=== PATIENT | male | born 1985 | race African-American/Black ===

== ENCOUNTER 2018-11-24 09:58 | Emergency (ER) | payer OTHER ==
[~2018-11-24] VITALS: Ht 172.7 cm; Wt 102.5 kg
[2018-11-24 10:05] VITALS: BP 132/95
[2018-11-24] MEDS ORDERED: MELO7.5T29 PO (10:43)
[2018-11-24] MEDS ORDERED: SULF1TAB24 PO (10:43)
--- NOTE | 2018-11-24 10:43 | PHYS DOC ---
Past History Past Medical History: No Pertinent History Past Surgical History: No Surgical History Smoking: Cigarettes Alcohol Use: None Drug Use: None Adult General Chief Complaint Chief Complaint: ABSCESS HPI HPI Patient is a 33-year-old male presents complaining of right trunk pain and swelling, a "spider bite.". Patient did not see a spider bite him. Denies any drainage. Reports pain is getting worse over time. Nothing makes the symptoms better or worse. Reports the pain is moderate to severe.[] Review of Systems Review of Systems Constitutional: Denies fever or chills [] Eyes: Denies change in visual acuity, redness, or eye pain [] HENT: Denies nasal congestion or sore throat [] Respiratory: Denies cough or shortness of breath [] Cardiovascular: No chest pain or palpitations[] GI: Denies abdominal pain, nausea, vomiting, bloody stools or diarrhea [] : Denies dysuria or hematuria [] Musculoskeletal: Denies back pain, also complains of right hand pain for the past month. 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 Increased pain with movement. No relief with home medicines. No trauma. No numbness or tingling.[] Integument: See history of present illness[] Neurologic: Denies headache, focal weakness or sensory changes [] Endocrine: Denies polyuria or polydipsia [] All other systems were reviewed and found to be within normal limits, except as documented in this note. Allergies Allergies Allergies Coded Allergies Type Severity Reaction Last Updated Verified No Known Drug Allergies 11/24/18 No Physical Exam Physical Exam Constitutional: Well developed, well nourished, no acute distress, non-toxic appearance. [] HENT: Normocephalic, atraumatic, bilateral external ears normal, oropharynx moist, no oral exudates, nose normal. [] Eyes: PERRLA, EOMI, conjunctiva normal, no discharge. [] Neck: Normal range of motion, no tenderness, supple, no stridor. [] Cardiovascular:Heart rate regular rhythm, no murmur [] Lungs & Thorax: Bilateral breath sounds clear to auscultation [] Abdomen: Bowel sounds normal, soft, no tenderness, no masses, no pulsatile masses. [] Skin: Warm, dry, 0.5 cm diameter papule right chest, anterior axillary line, with local erythema. No significant induration. No fluctuance.. [] Back: No tenderness, no CVA tenderness. [] Extremities: Right hand has full active range of motion, FDS, FDP, and extensor mechanisms are intact throughout. Normal opposition. Capillary refills less than 2 seconds. 2 point discrimination of less than 5 mm. The other 3 extremities show: No tenderness, no cyanosis, no clubbing, ROM intact, no edema. [] Neurologic: Alert and oriented X 3, normal motor function, normal sensory function, no focal deficits noted. [] Psychologic: Affect normal, judgement normal, mood normal. [] Current Patient Data Vital Signs Vital Signs Date Time Temp Pulse Resp B/P (MAP) Pulse Ox O2 Delivery O2 Flow Rate FiO2 11/24/18 10:05 97.3 78 20 97 Room Air EKG EKG [] Radiology/Procedures Radiology/Procedures [] Course & Med Decision Making Course & Med Decision Making Pertinent Labs and Imaging studies reviewed. (See chart for details) ED course: Patient arrived, was placed in bed, and tolerated exam well. Patient had the I&D performed as noted. He was discharged in improved condition with all questions answered. Medical decision making: This appears to be a cutaneous abscess on his right chest, no evidence of systemic toxicity. Right hand seems to be more of an overuse syndrome injury rather than any acute fracture, dislocation, nor infectious process. There is no evidence of neurologic or vascular compromise.[] Dragon Disclaimer Dragon Disclaimer This electronic medical record was generated, in whole or in part, using a voice recognition dictation system. Departure Departure: Impression: Primary Impression: Cutaneous abscess of trunk Additional Impression: Right hand pain Disposition: 01 HOME, SELF-CARE Condition: IMPROVED Referrals: PCP,NO (PCP) Patient Instructions: Abscess, Hand Injuries Additional Instructions: Follow-up with your regular doctor workman's comp in 2 days for the hand. Follow-up with your regular doctor for a wound check in 2 days. If you do not have regular doctor list of local clinics will be provided for you. Return to the ER if worsening pain, fever of more than 101, or any other concerns. Scripts Meloxicam (MELOXICAM) 7.5 Mg Tablet 7.5 MG PO DAILY for PAIN, #20 TAB Prov: JANETTE ALAMO DO 11/24/18 Sulfamethoxazole/Trimethoprim (BACTRIM DS TABLET) 1 Each Tablet 1 TAB PO BID for SKIN INFECTION, #20 TAB Prov: JASMEETJANETTE VIDALES 11/24/18 Incision and Drainage Indication: Right torso abscess Procedure: The patient was positioned appropriately and the skin over the incision site was prepped with Betadine. A needle aspiration was performed and small amount material was expressed. The patient tolerated the procedure well Complications: None Problem Qualifiers Primary Impression: Cutaneous abscess of trunk Site of cutaneous abscess of trunk: chest wall Qualified Codes: L02.213 - Cutaneous abscess of chest wall JANETTE ALAMO DO Nov 24, 2018 10:43
== END 2018-11-24 10:51 | disposition home or self-care (01) ==
LOC: ER 09:58
DX: L02.219 Cutaneous abscess of trunk, unspecified (principal); F17.210 Nicotine dependence, cigarettes, uncomplicated
CPT/HCPCS: 10060; 10160; 99283; 99284

== ENCOUNTER → 2018-12-01 | Outpatient (CLI) | payer OTHER ==
[2018-11-24 10:05] VITALS: BP 132/95
[~2018-12-01] MED LIST: MELO7.5T29 PO; SULF1TAB24 PO
--- NOTE | 2018-12-01 16:38 | RAD ---
Two-view right hand HISTORY: Right hand pain. FINDINGS: AP and lateral images are obtained of the right hand. No evidence of acute fracture. Joint spaces and alignment are intact. No erosive changes are seen. Tiny calcification adjacent to the ulnar styloid. No significant soft tissue swelling. Mild degenerative change at the first MCP joint. IMPRESSION: No acute radiographic findings. Electronically signed by: Selvin Smith MD (12/01/2018 4:36 PM) [id number]
== END | disposition home or self-care (01) ==
LOC: DXRAD 11:03
PROVIDERS: ATTEND Registered Nurse
DX: M18.11 Unilateral primary osteoarthritis of first carpometacarpal joint, right hand (principal); M25.841 Other specified joint disorders, right hand
CPT/HCPCS: 73120